=== PATIENT | female | born 1925 | race Caucasian/White ===

== ENCOUNTER 2016-12-15 13:49 | Emergency (ER) | payer MEDICARE, BC ==
--- OUTSIDE RECORDS SUMMARY | 2016-12-15 13:58 | XMS REPORT | Continuity of Care Document ---
:1925 Author Organization [facility] ([facility]) Address [address] [place] [address] Phone [phone] Care Team Providers Name Role Phone Mary Merabarb Primary Care Provider [phone] Source Comments This disclosure is being made pursuant to the Care Everywhere program, applicable federal and state laws, and may not contain all informaitonavailable regarding this patient.[facility] ([facility]) Active Allergies and Adverse Reactions Allergen Noted Date Severity Reactions Comments Codeine Nausea & Vomiting Sulfadoxine Urticaria (Hives) Current Medications Prescription Sig. Disp. Refills Start End Date Status Date metformin take 1,000 mg by Active (GLUCOPHAGE) mouth daily. 1,000 mg tablet Aspirin 81 mg take by mouth. Active TbEF glimepiride 4 mg Take 4 mg by mouth Active tablet 2 times daily with meals. simvastatin 10 mg Take 10 mg by Active tablet mouth every evening. isosorbide Take 60 mg by Active mononitrate 60 mg mouth Every CR tablet morning. SENNOSIDES (SENNA Take by mouth. Active LAX PO) pantoprazole 40 Take 40 mg by Active mg EC tablet mouth daily. SERTraline 50 mg Take 50 mg by Active tablet mouth daily. Calcium 600 mg Take by mouth. Active cap INSULIN inject 17 Units Active GLARGINE,HUM.REC. subcutaneously at ANLOG (LANTUS SC) bedtime. metoPROLol Take 100 mg by Active tartrate 100 mg mouth daily. tablet polyethylene Take 4,000 mL by 4000 mL 0 Active glycol-electrolyt mouth once. 7 e (GOLYTELY) Discontinue after suspension colonoscopy is complete. polyethylene Take 4,000 mL by 1 Container 0 12/01/19 Discontinued glycol-electrolyt mouth once. 4 17 e (GOLYTELY) Discontinue after suspension colonoscopy is complete. Indications: Bowel Prep Active Problems Problem Noted Date Spinal stenosis, unspecified region other than cervical 07/02/2002 Most Recent Encounters Date Type Specialty Providers Description 11/30/2016 Refill Med GI/Hepatology Jyoti Gallegos RN Dx: Screen for colon cancer (Primary Dx) 11/08/2016 Orders Only Med GI/Hepatology Franklin Richards MD Dx: Colon polyp (Primary Dx) Social History Tobacco Use Types Packs/Day Years Used Date Former Smoker Alcohol Use Drinks/Week oz/Week Comments Yes 1 Cans of beer 0.5 rarely Last Filed Vital Signs Vital Sign Reading Time Taken Blood Pressure 138/77 12/14/2013 9:48 AM CDT Pulse 67 12/14/2013 9:48 AM CDT Temperature 36.8 C (98.2 F) 12/14/2013 7:37 AM CDT Respiratory Rate 16 12/14/2013 9:07 AM CDT Height 1.78 m (5' 10.08") 04/27/2009 8:03 AM CDT Weight 97.2 kg (214 lb 4.6 oz) 04/27/2009 8:03 AM CDT Body Mass Index 30.68 04/27/2009 8:03 AM CDT Oxygen Saturation 93% 12/14/2013 9:48 AM CDT Plan of Care Date Type Specialty Providers Description 01/14/2017 Hospital Encounter Med GI/Hepatology Franklin Richards MD Chief Comp: Patient [address] [place] Visit [phone] (Fax) Health Maintenance Due Date Last Done Comments Hepatitis B Vaccine (1 of 3 - Primary Series) 1925 Tdap Vaccine 1938 Lipid Disorder Screening 1945 Td Vaccine 1945 Zoster Vaccine 1987 Pneumococcal Vaccine (1 of 2 - PCV13) 1992 Influenza Vaccine: Seasonal (Season Ended) 2017 Results from Last 3 Months Not on file
[2016-12-15] MEDS ORDERED: DIPHTH,PERTUSS(ACELL),TET VAC 0.5 ML VIAL IM ONE ×2 (14:01→15:00)
--- NOTE | 2016-12-15 14:06 | ERNOTE ---
Lower Extremity HPI - General Time Seen by Provider: 12/15/16 13:53 Source: patient, family Exam Limitations: no limitations - Immun/Allergies/Home Medications Immunizations: IMMUNIZATION HX Immunizations Up to Date Yes History of Influenza Vaccine More Information Required Allergies/Adverse Reactions: Allergies Allergy/AdvReac Type Severity Reaction Status Date / Time codeine Allergy Unknown Vomiting Verified 12/15/16 13:54 Sulfa (Sulfonamide Allergy Unknown Hives Verified 12/15/16 13:54 Antibiotics) ELIJAH Inhibitors Allergy Verified 12/15/16 13:54 atorvastatin calcium Allergy Verified 12/15/16 13:54 [From Lipitor] zolmitriptan [From Zomig] Allergy Verified 12/15/16 13:54 Home Medications: HOME MEDICATIONS Albuterol Sulfate [Albuterol Sulfate Hfa] 2 puff INH Q6H PRN 11/12/13 [Last Taken 03/16/14] Butalb/Acetaminophen/Caffeine [Uinvadzk-Ytjzznycnnnuy-Fpsb Cp] 1 each PO Q6H PRN 11/12/13 [Last Taken 04/14/14] Docusate Sodium [Colace] 100 mg PO DAILY 11/12/13 [Last Taken 04/15/14] Glimepiride [Amaryl] 8 mg PO DAILY 11/12/13 [Last Taken 04/15/14] Insulin Glargine,Hum.rec.anlog [Lantus Solostar] 100 unit SQ DAILY 11/12/13 [ Last Taken 04/14/14 21:00] Isosorbide Mononitrate [Imdur] 60 mg PO DAILY 11/12/13 [Last Taken 04/15/14] Metoprolol Succinate [Toprol Xl] 50 mg PO DAILY 11/12/13 [Last Taken 04/15/14] Pantoprazole Sodium [Protonix] 40 mg PO BID 11/12/13 [Last Taken 04/15/14] Polyethylene Glycol 3350 [Miralax] 17 gm PO DAILY 11/12/13 [Last Taken 04/15/14] Psyllium Husk (with Sugar) [Metamucil] 1 each PO BID 11/12/13 [Last Taken ] Sennosides/Docusate Sodium [Senna Laxative Tablet] 2 tab PO HS 11/12/13 [Last Taken 04/14/14 21:00] Sertraline HCl 50 mg PO HS PRN 11/12/13 [Last Taken 04/14/14 21:00] Simvastatin 10 mg PO HS 11/12/13 [Last Taken 04/14/14 21:00] metFORMIN HCL [Glucophage] 1,000 mg PO BIDWM 11/12/13 [Last Taken 04/15/14] traMADol HCL [Ultram] 50 mg PO Q12H PRN 11/12/13 [Last Taken 04/15/14] Acetaminophen [Tylenol] 500 mg PO Q6H PRN 04/15/14 [Last Taken Unknown] Gabapentin [Neurontin] 100 mg PO HS 04/15/14 [Last Taken 04/14/14 21:00] Isosorbide Mononitrate [Imdur] 60 mg PO DAILY 04/15/14 [Last Taken 04/15/14] Levofloxacin [Levaquin] 500 mg PO DAILY 04/15/14 [Last Taken 04/15/14] Doxycycline Hyclate [Morgidox] 100 mg PO BID #20 capsule 12/15/14 [Last Taken Unknown] - History of Present Illness Narrative: Patient was standing at home and suddenly she fell. She denies any loss of consciousness, she denies tripping, she states "from time to time I fall" she states that she did hit her head when she fell, but she is adamant that she did not lose consciousness. She complains of pain in the left frontal region of her head and in the left knee. Patient is able to recall all events. She cannot recall the last tetanus shot she had. Review of Systems - Review of Systems Constitutional: Present: no symptoms reported EYE: Present: no symptoms reported ENT: Present: other - patient has a slight headache in the left frontal region of her head. Respiratory: Present: no symptoms reported Cardiology: Present: no symptoms reported Gastrointestinal/Abdominal: Present: no symptoms reported Genitourinary: Present: no symptoms reported Musculoskeletal: Present: See HPI Skin: Present: no symptoms reported - Patient's Past Medical History Patient History - Medical: Anemia, Diabetes Type 2 Insulin Dependent, Migraines , Osteoarthritis, UTI'S Patient History - Cardiac/Respiratory: COPD, Hypertension, Hyperlipidemia Patient History - Cancer: No Hx of Cancer Patient History - Surgical Procedures: Appendectomy, Cancer Surgery, Cholecystectomy, Total Hip Replacement, Total Knee Replacement Patient History - Other: None - Family History Mother Family History - Medical: Family History - Cardiac/Respiratory: Coronary Heart Disease, Myocardial Infarction Sister Family History - Medical: - Social History Living Situations: alone Abuse History: No History of abuse Psych History: Current tx/ever been on anti-depressants or anti-anxiety meds Smoking Status: Never smoker Alcohol Use: none Drug Use: none - Immunizations Immunizations Up to Date: Yes History of Influenza Vaccine: More Information Required to Determine Physical Exam - Physical Exam General Appearance: Present: wd/wn, alert, no apparent distress Ears, Nose, Throat: Present: other - patient does have 2 linear superficial abrasions to the left zygomatic region of her face. Patient also has a 3 cm x 2 cm area of ecchymosis above the left eyebrow the area above the eyebrow is swollen. The eyes are unaffected she hasn't perfect extraocular movement of both eyes I do not see any hemotympanum a cervical collar was applied immediately. There is evidence of dried blood in the right near by this examiner does not see an open lesion or a bleeding vein in the right nostril or in the left nostril crepitus is palpated upon palpation of the zygomatic regions bilaterally but this is palpated upon palpation of the forehead bilaterally Respiratory: Present: no respiratory distress, normal breath sounds, no accessory muscle use, chest nontender, lungs clear Cardiovascular/Chest: Present: regular rate, rhythm, no murmur, normal peripheral pulses Gastrointestinal/Abdominal: Present: normal bowel sounds, nontender, nondistended, soft Back Exam: Present: normal inspection, normal range of motion Extremity Exam: Present: other - there is swelling and ecchymosis of the left knee. There is evidence of remote surgery of both knees patient states that her surgery was approximately 15-20 years ago in [place] by Dr. Osullivan who no longer practices there. Neurological Exam: Present: alert, oriented, normal mood/affect, no motor/ sensory deficits, epidemiology intern II-XII nml as tested, other - patient walked in and gait is slow but steady appears to be no gait disturbances. Skin Exam: Present: normal color, warm/dry ED Progress - Results and Orders Patient's Lab Results:: I have reviewed the patient's lab results. - Vital Signs Patient's Vital Signs:: I have reviewed the patient's vital signs. Vital Signs: Vital Signs 12/15/16 13:51 Temperature 36.3 C L Pulse Rate 68 Respiratory 14 Rate Blood Pressure 142/57 O2 Sat by Pulse 92 Oximetry - Progress/Reassessment Chief Complaint: Lower Extremity Pain/ Injury Plan - Plan Plan: This patient has a comminuted displaced left patellar fracture superimposed on an old metal back left knee prosthesis. The CT scan of her head, cervical spine , and facial bones is negative for any fractures. EKG was normal sinus rhythm He lives alone and was independent until her fall. There is no way she is able to go home and take care of herself with this fracture. This examiner contacted Dr. Gan in regards to admitting this patient to this facility. The conjugated nature of this fracture and the complications involved in its repair our facility orthopedic surgeon was unable to accept the patient to our facility. At this time Dr. Rucker at [place] [facility] was consulted. While Dr. Rucker indicated that this would be a difficult procedure at their facility, the patient's granddaughter who works with Dr. Pacheco asked Dr. Pacheco to call us and accept the patient to [facility]. I spoke to Dr. Pacheco personally who stated that he would accept the patient to [facility] and patient was transferred via ambulance to [facility] care Departure Clinical Impression: Fall Qualifiers: Encounter type: initial encounter Qualified Code(s): W19.XXXA - Unspecified fall, initial encounter Left patella fracture Qualifiers: Encounter type: initial encounter Fracture type: closed Fracture morphology: comminuted Fracture alignment: displaced Qualified Code(s): S82.042A - Displaced comminuted fracture of left patella, initial encounter for closed fracture - Departure Disposition: [facility] Condition: Fair Instructions: Patellar Fracture, Adult Referrals: Dillan Miguel MD [Primary Care Provider] -
[2016-12-15 14:16] LABS: Hematocrit 35.9 % (37.0-47.0); Hemoglobin 11.9 gm/dL (12.5-16.0); Mean Cell Volume 88.2 fl (78-100); Mean Corpuscular Hemoglobin 29.2 pg (27-31); Mean Corpuscular Hgb Conc 33.1 g/dl (32-36); Mean Platelet Volume 9.2 fl (6.0-9.5); Neutrophil # 3.4 K/mm3 (1.3-6.0); Neutrophil % 47.5 % (42-75.0); Platelet Count 190 K/mm3 (150-450); Red Blood Count 4.07 M/mm3 (4.2-5.4); Red Cell Distribution Width 13.3 % (11.5-14.0); White Blood Count 7.1 K/mm3 (4.0-10.5)
[2016-12-15 14:28] LABS: Albumin * 3.8 gm/dl (3.4-5.0); Anion Gap 13.2 mmol/L (6.8-13.8); Bilirubin, Total 0.2 mg/dL (0.0-1.1); Ca. Corrected For Albumin 9.3 mg/dL (8.4-10.2); Calcium * 9.5 mg/dL (7.9-10.9); Potassium 4.2 mmol/L (3.4-4.6); Total Protein 7.3 gm/dL (6.2-8.2)
[2016-12-15 15:24] LABS: INR 0.96 INR (0.90-1.10)
[2016-12-15 17:14] LABS: Urine Appearance Clear; Urine Color Yellow
[2016-12-15 17:17] LABS: Urine Bilirubin Negative (NEGATIVE); Urine Blood Negative /ul (NEGATIVE); Urine Ketone Negative (NEGATIVE); Urine Nitrite Negative (NEGATIVE); Urine Protein Negative (NEGATIVE); Urine Specific Gravity 1.015 SP.GR. (1.005-1.010); Urine Urobilinogen Normal (NORMAL)
[2016-12-15 17:19] LABS: Urine Bacteria None Seen; Urine RBC None Seen /hpf (0-5); Urine WBC 0-5 /hpf (0-5)
[2016-12-15 17:30] VITALS: BP 159/73
== END 2016-12-15 17:17 | disposition short-term general hospital (02) ==
LOC: ER 13:49
DX: S82.042A Displaced comminuted fracture of left patella, initial encounter for closed fracture (principal); S00.81XA Abrasion of other part of head, initial encounter; R60.0 Localized edema; Z87.440 Personal history of urinary (tract) infections; Z96.652 Presence of left artificial knee joint; W19.XXXA Unspecified fall, initial encounter; Y92.009 Unspecified place in unspecified non-institutional (private) residence as the place of occurrence of the external cause; Z23 Encounter for immunization

== ENCOUNTER 2017-04-03 07:40 | Emergency (ER) | payer MEDICARE, BC ==
[2017-04-03 07:54] VITALS: BP 147/69
[2017-04-03] MEDS ORDERED: traMADol HCL 50 MG TABLET PO ONE (08:03)
[2017-04-03] MEDS ORDERED: traMADol HCL 50 MG TABLET ONE (08:06)
--- NOTE | 2017-04-03 08:09 | ERNOTE ---
Back Pain ER HPI Presenting Symptoms: injury/pain to back Time Seen by Provider: 04/03/17 07:49 Source: patient Exam Limitations: no limitations Immunizations: IMMUNIZATION HX Immunizations Up to Date Yes History of Influenza Vaccine More Information Required Allergies/Adverse Reactions: Allergies codeine Allergy (Unknown, Verified 04/03/17 07:54) Vomiting Sulfa (Sulfonamide Antibiotics) Allergy (Unknown, Verified 04/03/17 07:54) Hives ELIJAH Inhibitors Allergy (Verified 04/03/17 07:54) atorvastatin calcium [From Lipitor] Allergy (Verified 04/03/17 07:54) zolmitriptan [From Zomig] Allergy (Verified 04/03/17 07:54) Home Medications: HOME MEDICATIONS Albuterol Sulfate [Albuterol Sulfate Hfa] 2 puff INH Q6H PRN 11/12/13 [Last Taken 03/16/14] Docusate Sodium [Colace] 100 mg PO DAILY 11/12/13 [Last Taken 04/15/14] Glimepiride [Amaryl] 8 mg PO DAILY 11/12/13 [Last Taken 04/15/14] Insulin Glargine,Hum.rec.anlog [Lantus Solostar] 20 unit SQ DAILY 11/12/13 [ Last Taken 04/14/14 21:00] Metoprolol Succinate [Toprol Xl] 50 mg PO DAILY 11/12/13 [Last Taken 04/15/14] Pantoprazole Sodium [Protonix] 40 mg PO BID 11/12/13 [Last Taken 04/15/14] Psyllium Husk (with Sugar) [Metamucil] 1 each PO BID 11/12/13 [Last Taken ] Sertraline HCl 50 mg PO HS PRN 11/12/13 [Last Taken 04/14/14 21:00] Simvastatin 10 mg PO HS 11/12/13 [Last Taken 04/14/14 21:00] metFORMIN HCL [Glucophage] 1,000 mg PO BIDWM 11/12/13 [Last Taken 04/15/14] traMADol HCL [Ultram] 50 mg PO Q12H PRN 11/12/13 [Last Taken 04/15/14] Acetaminophen [Tylenol] 500 mg PO Q6H PRN 04/15/14 [Last Taken Unknown] Gabapentin [Neurontin] 300 mg PO TID 04/15/14 [Last Taken 04/14/14 21:00] Isosorbide Mononitrate [Imdur] 30 mg PO DAILY 04/15/14 [Last Taken 04/15/14] Topiramate 25 mg PO HS 02/12/17 [Last Taken Unknown] Toprol Xl 50 mg PO HS 02/12/17 [Last Taken Unknown] Tylenol 1,000 mg PO Q6H 02/12/17 [Last Taken Unknown] Nitroglycerin [Nitrostat] 0.4 mg SL Q5MIN PRN 04/03/17 [Last Taken Unknown] traMADol HCL [Ultram] 50 mg PO TID PRN #20 tab 04/03/17 [Last Taken Unknown] Narrative: Patient states that she has had low back pain for about a week. She fell two months ago injuring her left knee, but did not have back pain then and denies any recent injuries. The pain radiates down her right posterior leg down to the knee Timing: Reports: getting worse Quality/Severity: Reports: severe, aching Location of pain: Reports: lower back, radiating to rt thigh/leg Activities at Onset: Reports: none Recent Injury?: Reports: no Possible Precipitating Factor: Denies: lifting, turning/bending, fall/near fall Modifying Factors - (Improves): Reports: other - left over tramadol Modifying Factors - (Worsens): Reports: movement flexion Associated Symptoms: Denies: fever/chills, sweating, constipation/incontinence, nausea/vomiting, problems urinating, difficulty walking, lightheadedness, numbess/weakness in legs Prior Treament: Reports: recently seen. Denies: similar symptoms before Review of Systems - Review of Systems Constitutional: Absent: recent illness, fever ENT: Absent: nasal drainage, sore throat Respiratory: Absent: shortness of breath, cough Cardiology: Absent: chest pain Gastrointestinal/Abdominal: Absent: nausea, vomiting, abdominal pain Genitourinary: Present: no symptoms reported. Absent: frequency Musculoskeletal: Present: See HPI Skin: Absent: rash Neurological: Absent: weakness, numbness Hematologic/Lymphatic: Present: no symptoms reported - Patient's Past Medical History Patient History - Medical: Anemia, Diabetes Type 2 Insulin Dependent, Migraines , Osteoarthritis, UTI'S Patient History - Cardiac/Respiratory: Coronary Heart Disease, COPD, Hypertension, Hyperlipidemia Patient History - Cancer: No Hx of Cancer Patient History - Surgical Procedures: Appendectomy, Cancer Surgery, Cholecystectomy, Hysterectomy, Total Hip Replacement, Total Knee Replacement, Orthopedic Patient History - Other: None - Family History Mother Family History - Medical: Family History - Cardiac/Respiratory: Coronary Heart Disease, Myocardial Infarction Sister Family History - Medical: - Social History Living Situations: home Abuse History: No History of abuse Psych History: Current tx/ever been on anti-depressants or anti-anxiety meds Smoking Status: Never smoker Alcohol Use: none Drug Use: none - Immunizations Immunizations Up to Date: Yes History of Influenza Vaccine: More Information Required to Determine Physical Exam - Physical Exam General Appearance: Present: wd/wn, alert, no apparent distress Respiratory: Present: no respiratory distress, normal breath sounds, no accessory muscle use, lungs clear Cardiovascular/Chest: Present: regular rate, rhythm, no murmur Back Exam: Present: normal inspection, no vertebral tenderness, other - tender right lower buttock, pain with straight leg raise bilateral Extremity Exam: Present: no edema Neurological Exam: Present: alert, oriented, normal mood/affect, no motor/ sensory deficits Skin Exam: Present: normal color, warm/dry ED Progress - Vital Signs Patient's Vital Signs:: I have reviewed the patient's vital signs. Vital Signs: Vital Signs 04/03/17 07:50 Temperature 36.1 C L Pulse Rate 67 Respiratory 12 Rate Blood Pressure 147/69 O2 Sat by Pulse 95 Oximetry - X-Ray X-Ray #1 X-Ray: lumbosacral - DJD, no fracture Interpretation: Reviewed by me - Progress/Reassessment Chief Complaint: Back Pain Progress Note-Subjective: 04/03/17 09:05 discussed results with patient and family, tramadol starting to work, pain improved Departure Clinical Impression: Sciatica of right side - Departure Disposition: Home self-care Condition: Good Instructions: Sciatica, [id number] Additional Instructions: call your doctor for follow up, you might need to be seen by physical therapy Referrals: Dillan Miguel MD [Primary Care Provider] - Prescriptions: traMADol HCL [Ultram] 50 mg PO TID PRN #20 tab PRN Reason: Pain
== END 2017-04-03 09:12 | disposition home or self-care (01) ==
LOC: ER 07:40
DX: M54.31 Sciatica, right side (principal); D64.9 Anemia, unspecified; E11.9 Type 2 diabetes mellitus without complications; Z79.4 Long term (current) use of insulin; M19.90 Unspecified osteoarthritis, unspecified site; I25.2 Old myocardial infarction; J44.9 Chronic obstructive pulmonary disease, unspecified; I10 Essential (primary) hypertension; E78.5 Hyperlipidemia, unspecified